=== PATIENT | female | born 1975 | race Caucasian/White ===

== ENCOUNTER → 2018-03-01 | Outpatient (REF) | payer OTHER | LOC: M LAB REF 14:40 | DX: R19.7 Diarrhea, unspecified (principal) | CPT/HCPCS: 87507 ==

== ENCOUNTER → 2018-03-23 | Outpatient (REF) | payer OTHER ==
[2018-03-23 18:50] LABS: FERRITIN 46 NG/ML (8-252); IRON (FE) 102 UG/DL (50-170); PERCENT SATURATION 38.9 % (13.2-45.0); TOTAL IRON BINDING CAPACITY 262 UG/DL (250-450)
== END ==
LOC: M LAB REF 17:19
DX: Q87.81 Alport syndrome (principal)

== ENCOUNTER → 2019-06-14 | Outpatient (REF) | payer OTHER, BC ==
[2019-06-14 17:44] LABS: PERCENT SATURATION 32.9 % (13.2-45.0)
[2019-06-17 00:16] LABS: ENDOMYSIAL ABY IgA Negative (Negative); TISSUE TRANSGLUTAMINASE IgA <2 U/mL (0-3)
== END ==
LOC: M LAB REF 17:03
PROVIDERS: ATTEND Internal Medicine
DX: Z14.8 Genetic carrier of other disease (principal); R10.9 Unspecified abdominal pain

== ENCOUNTER → 2020-09-04 | Outpatient (REF) | payer BC, OTHER | LOC: M LAB REF 16:32 | PROVIDERS: ATTEND Internal Medicine | DX: J18.9 Pneumonia, unspecified organism (principal) ==

== ENCOUNTER → 2021-07-17 | Outpatient (CLI) | payer BC ==
--- NOTE | 2021-07-17 13:18 | REP ---
INDICATION: HEMATURIA. COMPARISON: None. TECHNIQUE: Real-time sonographic evaluation of the kidneys with Doppler FINDINGS: Multiple ultrasonographic images of the right kidney show the right kidney to measure 11.8 x 5.7 x 3.7 cm. The renal cortical echotexture is unremarkable. There are no masses. There is good corticomedullary differentiation. There is no hydronephrosis. There are no perinephric fluid collections. Multiple ultrasonographic images of the left kidney show the left kidney to measure 13.1 x 4.9 x 3.9 cm. The renal cortical echotexture is unremarkable. There are no masses. There is good corticomedullary differentiation. There is no hydronephrosis. There are no perinephric fluid collections. Doppler of the urinary bladder at the UV junction shows uro jet phenomena bilaterally. IMPRESSION: Unremarkable renal ultrasonography. <Electronically signed by Saturnino Yuan > 07/17/21 [id number]
== END ==
LOC: M RAD 12:41
PROVIDERS: ATTEND Internal Medicine
DX: R31.9 Hematuria, unspecified (principal)